=== PATIENT | female | born 1960 | race Caucasian/White ===

== ENCOUNTER 2017-11-21 15:12 | Outpatient (CLI) | payer OTHER ==
--- NOTE | 2017-11-22 09:57 | Ultrasound Report ---
Reason: LOCALIZED ENLARGED LYMPH NODES,OSTEOPENIA,POST MEN Procedure Date: 11/21/2017 Accession Number: [id number] / [id number] Procedure: US - Head or Neck Soft Tissue CPT Code: FULL RESULT: EXAM: NECK ULTRASOUND EXAM DATE: 11/21/2017 05:00 PM. CLINICAL HISTORY: Posterior cervical lymphadenopathy. COMPARISON: None. TECHNIQUE: Real-time sonographic imaging was performed by the internal revenue service agent utilizing color-flow. Multiple open claims representative static images were saved for review. FINDINGS: Targeted evaluation of the areas of concern in the posterior neck reveals underlying normal sized lymph nodes with normal vascular phil. The largest lymph node in the right posterior neck measures 1.2 x 0.6 x 0.9 cm. The largest lymph node in the left posterior neck measures 1.1 x 0.4 x 0.7 cm. IMPRESSION: Normal appearing bilateral posterior cervical lymph nodes. RADIA
--- NOTE | 2017-11-25 08:33 | DEXA Report ---
Reason: OSTEOPENIA,POST MEN Procedure Date: 11/21/2017 Accession Number: [id number] / [id number] Procedure: DEX - Dexa Spine and/or Hip CPT Code: FULL RESULT: EXAM: Dexa Spine and/or Hip DATE: 11/21/2017 3:48 PM CLINICAL HISTORY: OSTEOPENIA,POST MEN TECHNIQUE: Dual energy x-ray absorptiometry (DXA) was performed on a [employer] System. Regions measured are the AP Spine, femoral neck, and if needed forearm. COMPARISON: None. In accordance with the International Society for Clinical Densitometry (ISCD) guidelines, data from previous exams may be reanalyzed using current recommendations and techniques. This is done to allow a more accurate basis for comparison with the current study. FINDINGS: The data for the lumbar spine is as follows: BMD (g/cm/cm) T-SCORE Z-SCORE REGION L1 0.908 -1.8 -0.7 L2 0.953 -2.1 -0.9 L3 0.938 -2.2 -1.0 L4 1.004 -1.6 -0.5 TOTAL 0.954 -1.9 -0.7 NOTE: All evaluable vertebrae are used for classification The data for the hip is as follows: BMD (g/cm/cm) T-SCORE Z-SCORE REGION Neck 0.848 -1.4 -0.1 TOTAL 0.848 -1.3 -0.4 NOTE: The femoral neck or total proximal femur, whichever is lowest, is used for classification. IMPRESSION: THE WHO CLASSIFICATION BASED ON THE INTERNATIONAL REFERENCE STANDARD IS OSTEOPENIA. THE FRACTURE RISK IS INCREASED. RECOMMENDATION: Patients with diagnosis of osteoporosis or osteopenia should have regular bone mineral density assessment. For those eligible for Medicare, routine testing is allowed once every 2 years. Testing frequency can be increased for patients who have rapidly progressing disease or for those who are receiving medical therapy to restore bone mass. COMMENT: World Health Organization (WHO) definitions for osteoporosis and osteopenia: NORMAL BMD: T-score at -1.0 or higher, fracture risk is low OSTEOPENIA BMD: T-score between -1.0 and -2.5, fracture risk is increased. OSTEOPOROSIS BMD: T-score at -2.5 or lower, fracture risk is high. National Osteoporosis Foundation recommends: 1. Obtain adequate dietary calcium (at least 1200 mg per day) and vitamin D (400-800 international units per day). 2. Participate, as appropriate, in regular weightbearing and muscle-strengthening exercise. 3. Avoid tobacco use and reduce alcohol and caffeine intake. 4. For more detailed information see the website at www.NOF.org.
== END 2017-11-21 15:13 | disposition home or self-care (01) ==
LOC: DI 15:12
PROVIDERS: ATTEND Nurse Practitioner Family
DX: M85.89 Other specified disorders of bone density and structure, multiple sites (principal); N95.1 Menopausal and female climacteric states; R59.0 Localized enlarged lymph nodes
CPT/HCPCS: 76536; 77080

== ENCOUNTER 2020-07-04 09:44 | Outpatient (CLI) | payer OTHER ==
--- NOTE | 2020-07-04 17:30 | DEXA Report ---
PROCEDURE: Dexa Spine and/or Hip INDICATIONS: OSTEOPENIA TECHNIQUE: Dual energy x-ray absorptiometry (DXA) was performed on a [employer] System. Regions measur ed are the AP Spine, femoral neck, and if needed forearm. COMPARISON: 11/21/2017. FINDINGS: Lumbar Spine: Bone Mineral Density 0.977 g/cm/cm,T score -1.7, osteopenia Left Hip: Bone Mineral Density 0.834 g/cm/cm,T score -1.4, osteopenia Left Femoral Neck: Bone Mineral Density 0.834 g/cm/cm, T score -1.5, osteopenia (T score greater or equal to -1.0: NORMAL) (T score from -1.1 to -2.4: OSTEOPENIA) (T score less than or equal to -2.5 to: OSTEOPOROSIS) Impression: Osteopenia. Bone mineral density has decreased 1.7% interval since prior exam. Patients with diagnosis of osteoporosis or osteopenia should have regular bone mineral density assess ment. For those eligible for Medicare, routine testing is allowed once every 2 years. Testing frequ ency can be increased for patients who have rapidly progressing disease or for those who are receivin g medical therapy to restore bone mass. Reviewed by: Janette Guzman MD, PhD on 07/04/2020 5:29 PM PDT Approved by: Janette Guzman MD, PhD on 07/04/2020 5:29 PM PDT Station ID: [id number]
== END 2020-07-04 09:45 | disposition home or self-care (01) ==
LOC: DI 09:44
PROVIDERS: ATTEND Nurse Practitioner Family
DX: M85.89 Other specified disorders of bone density and structure, multiple sites (principal)

== ENCOUNTER 2021-12-20 09:48 | Day surgery (SDC) | payer OTHER ==
[2021-12-20] MEDS ORDERED: LACTATED RINGERS 1,000 ML IV ONE ×2 (10:05→11:04)
[2021-12-20] MEDS ORDERED: PROPOFOL 500 MG/50 ML 500 MG/50 ML VIAL ONE (10:12)
--- NOTE | 2021-12-20 10:25 | ANESTHESIA ---
Pre-Anesthesia VS, & Labs - Diagnosis screening - Procedure colonoscopy Vital Signs: Temp Pulse Resp BP Pulse Ox O2 Flow Rate 36.5 C 54 L 14 132/72 H 98 0 12/20/21 10:06 12/20/21 10:06 12/20/21 10:06 12/20/21 10:06 12/20/21 10:06 12/20/21 10:06 Height: 5 ft Weight (kg): 55.3 kg Body Mass Index: 23.8 BMI Classification: Normal - NPO Other (prep this am) - Is Patient ?: No Home Medications and Allergies Home Medications: Ambulatory Orders Carvedilol [Coreg] 1 tab PO BID 12/19/21 Lisinopril [Zestril] 2.5 mg PO DAILY 12/19/21 Carvedilol [Coreg] 1 tab PO BID 12/19/21 Lisinopril [Zestril] 2.5 mg PO DAILY 12/19/21 Allergies/Adverse Reactions: Allergies Allergy/AdvReac Type Severity Reaction Status Date / Time No Known Drug Allergies Allergy Verified 12/20/21 09:31 Anes History & Medical History - Anesthetic History Anesthesia Complications: reports: No previous complications - Medical History Cardiovascular: reports: None Pulmonary: reports: Other (Covid 4 weeks ago, mild case, denies current cough) Gastrointestinal: reports: None Urinary: reports: None Musculoskeletal: reports: None Endocrine/Autoimmune: reports: None Skin: reports: None History of Cancer?: No - Surgical History General: reports: Colonoscopy Gynecologic: reports: section, Mastectomy Plan Anesthesia Type: Total IV Consent for Procedure(s) Verified and Reviewed: Yes Code Status: Attempt Resuscitation ASA classification: 2-Mild systemic disease Is this case an emergency?: No
[2021-12-20 11:34] VITALS: BP 94/63
--- NOTE | 2021-12-20 11:36 | ANESTHESIA POST OP EVALUATION ---
Anesthesia Post Eval - Post Anesthesia Eval Vitals: Last Vital Signs Temp 37 C 12/20/21 11:04 Pulse 53 L 12/20/21 11:33 Resp 13 12/20/21 11:33 BP 94/63 12/20/21 11:33 Pulse Ox 100 12/20/21 11:33 O2 Flow Rate 0 12/20/21 10:06 CV Function Including HR & BP: Stable Pain Control: Satisfactory Nausea & Vomiting: Negative Mental Status: Baseline Respiratory Status: Airway Patent Hydration Status: Satisfactory Anesthesia Complications: None
== END 2021-12-20 09:49 | disposition home or self-care (01) ==
LOC: SDS 09:48
PROVIDERS: ATTEND Surgery
DX: Z12.11 Encounter for screening for malignant neoplasm of colon (principal); K64.8 Other hemorrhoids; Z86.16 Personal history of COVID-19
CPT/HCPCS: 45378; J7120

== ENCOUNTER 2023-01-15 07:00 | Outpatient (CLI) | payer OTHER ==
--- NOTE | 2023-01-15 11:10 | XRAY Report ---
PROCEDURE: Chest 2 View X-Ray INDICATIONS: UPPER RESPIRATORY INFECTION TECHNIQUE: 2 views of the chest were acquired. COMPARISON: None. FINDINGS: Surgical changes and devices: Left mastectomy with breast prosthesis. Lungs and pleura: No pleural effusions or pneumothorax. Lungs are clear. Mediastinum: Mediastinal contours appear normal. Heart size is normal. Bones and chest wall: No suspicious bony lesions. Overlying soft tissues appear unremarkable. IMPRESSION: No acute cardiopulmonary process. Reviewed by: Ilya Pineda on 01/15/2023 11:09 AM [facility] Approved by: Ilya Pineda on 01/15/2023 11:09 AM [facility] Station ID: [id number]
== END 2023-01-15 23:59 | disposition home or self-care (01) ==
LOC: DI.S 07:00
PROVIDERS: ATTEND Physician Assistant
DX: J06.9 Acute upper respiratory infection, unspecified (principal)